=== PATIENT | female | born 1955 | race Caucasian/White ===

== ENCOUNTER 2018-07-21 21:12 | Inpatient (IN) | payer OTHER ==
[2018-07-21] MEDS ORDERED: Acetaminophen 500 MG TAB ONE (21:32)
[2018-07-21] MEDS ORDERED: Ondansetron PF 4 MG/2 ML Vial ONE (21:40)
[2018-07-21 21:51] LABS: #Basophils 0.1 thou/uL (0.0-0.2); #Eosinphils 0.2 thou/uL (0.0-0.7); #Monocytes 1.2 thou/uL (0.11-0.59); #Neutrophils 11.9 thou/uL (1.40-6.50); %Basophils 0.6 % (0.0-1.0); %Eosinophils 1.6 % (0.0-10.0); %Monocytes 8.1 % (0.0-10.0); %Neutrophils 82.8 % (42.0-75.0); Hemoglobin 13.5 g/dL (12.0-16.0); Mean Corpuscular HGB CONC 33.7 g/dL (32.0-36.0); Mean Corpuscular Hemoglobin 30.7 pg (27.0-31.0); Mean Corpuscular Volume 91.2 fL (78.0-98.0); Mean Platelet Volume 8.7 fL (7.4-10.4); Platelet Count 249 thou/uL (130-400); RBC Distribution Width 12.3 % (11.5-14.5); Red Blood Cell (RBC) Count 4.41 mill/uL (4.20-5.40); White Blood Cell (WBC) Count 14.4 thou/uL (4.8-10.8)
[2018-07-21 22:12] LABS: ALT (SGPT) 18 U/L (8-55); AST (SGOT) 25 U/L (5-34); Albumin 4.5 g/dL (3.4-4.8); Alkaline Phosphatase 75 U/L (40-150); Anion Gap 13 mmol/L (10-20); BUN (Urea Nitrogen) 15 mg/dL (9.8-20.1); Bilirubin, Total 0.4 mg/dL (0.2-1.2); Calc. Creatinine Clearance 0 mL/min (70-130); Calcium 9.7 mg/dL (7.8-10.44); Carbon Dioxide 26 mmol/L (23-31); Chloride 103 mmol/L (98-107); Estimated GFR-MDRD 61; Glucose 135 mg/dL (80-115); Potassium 3.9 mmol/L (3.5-5.1); Protein, Total 7.5 g/dL (6.0-8.3); Sodium 138 mmol/L (136-145)
--- NOTE | 2018-07-21 22:43 | RAD ---
EXAM: CHEST ONE VIEW: History: Chest pain, abdominal pain. FINDINGS: Monitor leads overlie the chest. Heart size is within normal limits. The lungs are clear. IMPRESSION: No acute intrathoracic disease. POS: RRE
[2018-07-21] MEDS ORDERED: Sodium Chloride 0.9% 100 ML ONE (23:41)
[2018-07-21] MEDS ORDERED: cefTRIAXone\\ROCEPHIN 2 GM VIAL ONE (23:41)
[2018-07-21 23:42] LABS: Bilirubin Negative (Negative); Blood, Urine Negative (Negative); Clarity CLEAR (Clear); Glucose, Urine (Dipstick) Negative (Negative); Leukocyte Small (Negative); Nitrite Negative (Negative); Protein, Urine (Dipstick) Negative (Neg-Trace); Specific Gravity, Urine 1.012 (1.002-1.036); pH, Urine 7.5 (5.0-9.0)
[2018-07-21 23:43] LABS: Bacteria/HPF None Seen HPF (None Seen); Pathc Cast-AUWi Flag 0.27 (0-2.49)
[2018-07-21 23:50] LABS: Hyaline Casts/LPF NONE SEEN LPF (0-3 Hyaline); Renal Epithelial None Seen HPF (0-3); Transitional Epithelial NONE SEEN HPF (0-3)
[2018-07-22 00:54] LABS: Troponin I 0.011 ng/mL (< 0.028)
[2018-07-22] MEDS ORDERED: Azithromycin 500 MG VIAL ONE (00:57)
[2018-07-22] MEDS ORDERED: Acetaminophen 325 MG TAB ONE (01:54)
--- NOTE | 2018-07-22 08:10 | SS ---
DATE OF ADMISSION: 07/21/2018 DATE OF DISCHARGE: 07/22/2018 SUMMARY: A 62-year-old white female presented earlier to the emergency room with chest discomfort along with fever and chills. Her temperature in the emergency room was 101 with respiration of 20, pulse rate of 114 with a blood pressure 142/80. Her chest x-ray was negative. EKG showed sinus tachycardia. The patient notified RN that she wants to sign against medical advice. I briefly discussed with the patient about the plan of care. She understands the risk and wants to sign against medical advice. I was unable to examine the patient. I discussed the labs, the chest x-ray findings. I send a prescription for Omnicef and azithromycin to [facility] in [place]. The patient understands the risks and consequences of not getting admitted. Job ID: [id number]
== END 2018-07-21 23:44 | disposition left against medical advice (07) | DRG 313 ==
LOC: ERS 21:12 → 2SW 22:46 → ERHOLD 23:44
PROVIDERS: ADMIT Internal Medicine; ATTEND Internal Medicine
DX: R07.89 Other chest pain (principal)
CPT/HCPCS: 36415; 71045; 80053; 81003; 81015; 83605; 84443; 84484; 85025; 85379; 87040; 87086; 87804; 93005; 94760; 96361; 96365; 96367; 96375; J0456; J0696; J2405; J7050